=== PATIENT | female | born 1940 | race Caucasian/White ===

== ENCOUNTER → 2017-01-07 | Outpatient (CLI) | payer MEDICARE, OTHER | LOC: GMAB 10:31 | PROVIDERS: ATTEND Family Medicine | DX: I10 Essential (primary) hypertension (principal); E11.9 Type 2 diabetes mellitus without complications; Z79.4 Long term (current) use of insulin ==

== ENCOUNTER → 2017-05-01 | Outpatient (CLI) | payer MEDICARE, OTHER | END | disposition home or self-care (01) | LOC: GMAB 09:50 | PROVIDERS: ATTEND Family Medicine | DX: L40.50 Arthropathic psoriasis, unspecified (principal); R23.3 Spontaneous ecchymoses ==

== ENCOUNTER → 2017-05-21 | Outpatient (CLI) | payer MEDICARE, OTHER ==
--- NOTE | 2017-05-21 20:18 | MRI ---
EXAM DESCRIPTION: Brain w/oContrast CLINICAL HISTORY: TENSION-TYPE HEADACHE COMPARISON: None TECHNIQUE: Multiplanar multisequence imaging of the brain including the intravenous administration of contrast. FINDINGS: Mildly generous extra-axial CSF spaces anterior to each frontal lobe and to the left of the left frontal lobe could be due to mild parenchymal volume loss. No definite focal extra-axial fluid collection is seen. There is no evidence of layering blood products and extra-axial CSF spaces. Scattered foci of increased T2 signal intensity do not exert significant mass effect on surrounding structures and may be sequela of prior insult, most likely on the basis of small vessel disease. There is no definite evidence of acute mass, mass effect, midline shift or hemorrhage. No focal abnormal extra-axial fluid collection is seen. The ventricles, basal cisterns and extra-axial fluid spaces are otherwise normal in size and configuration. Brain parenchymal signal is otherwise normal. IMPRESSION: No acute abnormalities. Electronically signed by: Alec Bates 05/21/2017 8:17 PM [facility]
== END | disposition home or self-care (01) ==
LOC: MRI 13:02
PROVIDERS: ATTEND Family Medicine
DX: G44.209 Tension-type headache, unspecified, not intractable (principal)

== ENCOUNTER → 2017-11-13 | Outpatient (CLI) | payer MEDICARE, MEDICAID | LOC: GMAB 10:46 | PROVIDERS: ATTEND Family Medicine | DX: I10 Essential (primary) hypertension (principal) ==

== ENCOUNTER → 2018-01-22 | Outpatient (CLI) | payer MEDICARE, MEDICAID | LOC: GMAE 10:45 | PROVIDERS: ATTEND Family Medicine | DX: E11.40 Type 2 diabetes mellitus with diabetic neuropathy, unspecified (principal); I10 Essential (primary) hypertension ==

== ENCOUNTER 2018-10-06 10:50 | Emergency (ER) | payer MEDICARE, OTHER ==
[2018-10-06 11:20] VITALS: TEMP 98.5
[2018-10-06] MEDS ORDERED: SODIUM CHLORIDE 0.9% (FLUSH) 10 ML SYG IV PRN (11:23)
[2018-10-06] MEDS ORDERED: fentaNYL CITRATE INJ 50 MCG/ML AMP IV ONE (11:26)
--- NOTE | 2018-10-06 11:45 | ED.PDOC ---
History of Present Illness - General Chief Complaint: General Stated Complaint: pain from fall on Friday Time Seen by Provider: 10/06/18 11:23 Source: patient Exam Limitations: no limitations - History of Present Illness Initial Comments: PT PRESENT WITH COMPLAINT OF BACK PAIN AND NECK PAIN AFTER FALLING 3 DAYS AGO WHILE AT HOME. PT REPORTS THAT SHE LOST HER BALANCE AND FELL BACKWARDS HITTING HER BUTTOCKS, BACK AND HEAD. SHE DENIES LOC. SHE REPORTS ONLY MINOR SORENESS INITIALLY BUT STATES THAT PAIN WAS INTENSIFIED UPON AWAKENING THIS AM. PT TAKES PLAVIX FOR CAD. Severity: moderate Improving Factors: immobilization Worsening Factors: movement Associated Symptoms: denies symptoms Allergies/Adverse Reactions: Allergies Diphenhydramine [From Benadryl] Adverse Reaction (Verified 10/06/18 11:20) Penicillins Adverse Reaction (Verified 10/06/18 11:20) Home Medications: Ambulatory Orders Clopidogrel Bisulfate [Plavix] 10/06/18 Cyclobenzaprine HCl [Flexeril] 10 mg PO Q6HR PRN #20 tab 10/06/18 Furosemide Tab [Lasix Tab] 10/06/18 Insulin Glargine 100U/ml [Lantus] 10/06/18 Metoprolol Tartrate [Lopressor] 10/06/18 Sitagliptin Phosphate [Januvia] 10/06/18 Sulfasalazine 10/06/18 Tramadol HCl 10/06/18 Review of Systems - Review of Systems Constitutional: Denies: chills, fever EENTM: Denies: nose congestion, throat pain Respiratory: Denies: cough, short of breath Cardiology: Denies: chest pain, palpitations Gastrointestinal/Abdominal: Denies: nausea, vomiting Genitourinary: Denies: dysuria, frequency Musculoskeletal: States: see HPI, back pain, muscle pain, muscle stiffness, neck pain Skin: Denies: dryness, lesions Neurological: Denies: headache, numbness Endocrine: States: no symptoms reported Hematologic/Lymphatic: States: no symptoms reported Past Medical History (General) - Patient Medical History Hx Seizures: No Hx Asthma: No Hx of COPD: No Hx Cardiac Disorders: Yes Hx Congestive Heart Failure: No Hx Pacemaker: No Hx Hypertension: No Hx Diabetes: Yes Hx Gastroesophageal Reflux: Yes Hx Cancer: Yes - COLON Hx Hepatitis C: No Surgical History: cholecystectomy, tonsillectomy, Hysterectomy - Vaccination History Hx Tetanus, Diphtheria Vaccination: Yes Hx Influenza Vaccination: Yes Hx Pneumococcal Vaccination: Yes Immunizations Up to Date: Yes - Social History Hx Tobacco Use: No Hx Alcohol Use: No Hx Substance Use: No Hx Substance Use Treatment: No Hx Depression: No - Female History Patient is a Female of Child Bearing Age (10 -59 yrs old): No Family Medical History - Family History Mother Family History: Unknown Living Status: Physical Exam - Physical Exam General Appearance: Alert, Obese, Well Developed, Well Groomed, Well Hydrated, Other - APPEARS UNCOMFORTABLE Eye Exam: bilateral normal Ears, Nose, Throat: hearing grossly normal, normal ENT inspection Neck: supple, normal inspection, tender midline Respiratory: chest non-tender, lungs clear, normal breath sounds, no respiratory distress Back Exam: normal inspection, other - MUSCLE TENDERNESS ALONG BILATERAL TRAPEZIUS MUSCLES Extremity: non-tender, normal inspection Neurologic: alert, normal mood/affect, oriented x 3 Skin Exam: normal color, warm/dry, other - NO ECCHYMOSIS NOTED. Progress - Progress Progress: 10/06/18 13:09 PT HAS SOME RELIEF OF PAIN AFTER IV FENTANYL. LABS AND CT FINDINGS DISCUSSED WITH PATIENT AND FAMILY MEMBER AT BEDSIDE. PT ENCOURAGED TO FOLLOW UP WITH PRIMARY PHYSICIAN FOR FOLLOW UP. - Results/Orders Results/Orders: Laboratory Tests 10/06/18 10/06/18 10/06/18 11:38 11:38 11:38 WBC 4.6 L RBC 4.67 Hgb 13.1 Hct 40.9 MCV 87.5 MCH 28.1 MCHC 32.1 L RDW 16.3 H Plt Count 247 MPV 7.2 L Absolute Neuts (auto) 3.30 Absolute Lymphs (auto) 0.80 L Absolute Monos (auto) 0.50 Absolute Eos (auto) 0.10 Absolute Basos (auto) 0.00 Neutrophils % 71.1 Lymphocytes % 16.3 L Monocytes % 9.9 H Eosinophils % 1.9 Basophils % 0.8 PT 9.9 INR 0.99 PTT (SP) 22.7 Sodium 141 Potassium 3.6 Chloride 104 Carbon Dioxide 28 Anion Gap 12.6 BUN 16 Creatinine 0.57 L BUN/Creatinine Ratio 28.1 H Random Glucose 134 H Serum Osmolality 284.4 Calcium 9.0 Total Bilirubin 0.3 AST 25 ALT 19 Alkaline Phosphatase 52 Creatine Kinase CK-MM (CK-3) CK-BB (CK-1) CK and CKMB Interp Serum Total Protein 6.8 Albumin 3.9 Globulin 2.9 Albumin/Globulin Ratio 1.3 Urine Color Urine Appearance Urine pH Ur Specific Henderson Urine Protein Urine Glucose (UA) Urine Ketones Urine Blood Urine Nitrite Urine Bilirubin Urine Urobilinogen Ur Leukocyte Esterase Urine RBC Urine WBC Ur Epithelial Cells Amorphous Sediment Urine Bacteria Urine Mucus 10/06/18 10/06/18 10/06/18 11:38 11:43 12:40 WBC RBC Hgb Hct MCV MCH MCHC RDW Plt Count MPV Absolute Neuts (auto) Absolute Lymphs (auto) Absolute Monos (auto) Absolute Eos (auto) Absolute Basos (auto) Neutrophils % Lymphocytes % Monocytes % Eosinophils % Basophils % PT INR PTT (SP) Sodium Potassium Chloride Carbon Dioxide Anion Gap BUN Creatinine BUN/Creatinine Ratio Random Glucose Serum Osmolality Calcium Total Bilirubin AST ALT Alkaline Phosphatase Creatine Kinase 59 CK-MM (CK-3) Cancelled CK-BB (CK-1) Cancelled CK and CKMB Interp Cancelled Serum Total Protein Albumin Globulin Albumin/Globulin Ratio Urine Color Therese H Urine Appearance Clear Urine pH 6.5 Ur Specific Henderson 1.025 Urine Protein 100 H Urine Glucose (UA) Negative Urine Ketones Trace Urine Blood Negative Urine Nitrite Negative Urine Bilirubin Moderate Urine Urobilinogen 1.0 Ur Leukocyte Esterase Negative Urine RBC 0-1 Urine WBC 3-5 H Ur Epithelial Cells 5-10 Amorphous Sediment Trace Urine Bacteria Rare Urine Mucus Moderate - EKG/XRAY/CT CT: HEAD/C-SPINE: NO ACUTE ABNORMALITIES CT Ordered: Yes CT Interpretation Call Back: No Departure - Departure Clinical Impression: Myalgia, Closed head injury, Cervical strain Time of Disposition: 13:10 Disposition: Discharge to Home or Self Care Condition: Good Departure Forms: ED Discharge - Pt. Copy, Patient Portal Self Enrollment Diet: resume usual diet Referrals: ELEANOR MCKEON MD [Primary Care Provider] - 1-5 Days Prescriptions: Cyclobenzaprine HCl [Flexeril] 10 mg PO Q6HR PRN #20 tab PRN Reason: Muscle Spasms Home Medications: Ambulatory Orders Clopidogrel Bisulfate [Plavix] 10/06/18 Cyclobenzaprine HCl [Flexeril] 10 mg PO Q6HR PRN #20 tab 10/06/18 Furosemide Tab [Lasix Tab] 10/06/18 Insulin Glargine 100U/ml [Lantus] 10/06/18 Metoprolol Tartrate [Lopressor] 10/06/18 Sitagliptin Phosphate [Januvia] 10/06/18 Sulfasalazine 10/06/18 Tramadol HCl 10/06/18
[2018-10-06 11:51] VITALS: O2SAT 95
--- NOTE | 2018-10-06 12:42 | CT ---
EXAM DESCRIPTION: Head CLINICAL HISTORY: head injury remote COMPARISON: Previous CT head April 12, 2015 TECHNIQUE: Noncontrast head CT was performed with routine protocol. FINDINGS: Normal qiu-white matter differentiation. Ventricles and sulci are prominent consistent with age-related cerebral volume loss. Prominent extra-axial CSF spaces including frontal right parafalcine fluid measuring 1.1 cm on present study compared to 1 cm on previous exam. Collections overlying the frontal lobes bilaterally measure 1 cm on the right and 1.4 cm on the left compared to approximately 1 cm on the right and 1.3 cm on the left previously. Prominent subarachnoid spaces favored over chronic subdural hygromas/hematomas. No acute-appearing high density hemorrhage, focal edema or shift of the midline. No sulcal effacement. Normal orbital contents. Basilar cisterns appear clear. Intact calvarium with no fracture or lytic lesion. Normal aeration of tympanic cavities and mastoid air cells. No fluid levels in the paranasal sinuses. Skull base appears intact. Symmetrical internal auditory canals. Coronal and sagittal reformatted images confirm the findings. Partially empty sella. Mild thinning of the corpus callosum. IMPRESSION: No acute intracranial pathologic process. This exam was performed according to our departmental dose-optimization program, which includes automated exposure control, adjustment of the mA and/or kV according to patient size and/or use of iterative reconstruction technique. Total DLP equals 752.48 mGycm. Electronically signed by: Modesto Nuno MD 10/06/2018 12:39 PM CDT
--- NOTE | 2018-10-06 12:49 | CT ---
EXAM DESCRIPTION: Cervical Spine CLINICAL HISTORY: head injury remote COMPARISON: Previous CTA of the neck February 15, 2013 TECHNIQUE: Cervical CT is performed with thin-section axial imaging. MPRs are created and reviewed as well. FINDINGS: Axial bone window images reveal intact ring of C1. No abnormal widening of the atlantodens interval. No fracture of the vertebral bodies or transverse processes or posterior elements. Lung apices appear clear. No cervical mass or adenopathy. Sagittal reformatted images show normal alignment of vertebral bodies and facets. No jumped facet or facet fracture. Normal craniocervical alignment. No prevertebral soft tissue swelling. No avulsion of the spinous processes. Spondylosis: Previous anterior interbody fusion at C4 - C5 with anterior plate and screws in place. This was present on the previous study. Severe disc degeneration with near complete loss of disc height at the C3-4 level with lesser loss of disc height at C5-6, C6-7 and C7-T1. Moderately severe facet degenerative changes are seen above and below the levels of the fusion construct. Marked degenerative changes around the dens. Coronal reformatted images show normal atlantooccipital and atlantoaxial alignment. The base of the dens is intact as is the body of C2. Intact lateral masses. IMPRESSION: Negative for fracture or posttraumatic subluxation. This exam was performed according to our departmental dose-optimization program, which includes automated exposure control, adjustment of the mA and/or kV according to patient size and/or use of iterative reconstruction technique. Total DLP equals 319.77 mGycm. Electronically signed by: Modesto Nuno MD 10/06/2018 12:46 PM CDT
[2018-10-06] MEDS ORDERED: KETOROLAC TROMETHAMINE INJ 30 MG/ML VIAL IV ONE (13:04)
[2018-10-06 13:27] VITALS: BP 182/80
== END 2018-10-06 13:45 | disposition home or self-care (01) ==
LOC: ER 10:50
DX: S09.90XA Unspecified injury of head, initial encounter (principal); S16.1XXA Strain of muscle, fascia and tendon at neck level, initial encounter; M79.10 Myalgia, unspecified site; I25.10 Atherosclerotic heart disease of native coronary artery without angina pectoris; E11.9 Type 2 diabetes mellitus without complications; K21.9 Gastro-esophageal reflux disease without esophagitis; Z85.038 Personal history of other malignant neoplasm of large intestine; Z79.4 Long term (current) use of insulin; Z79.899 Other long term (current) drug therapy; Z79.02 Long term (current) use of antithrombotics/antiplatelets; Z88.8 Allergy status to other drugs, medicaments and biological substances; Z88.0 Allergy status to penicillin; W18.30XA Fall on same level, unspecified, initial encounter; Y92.009 Unspecified place in unspecified non-institutional (private) residence as the place of occurrence of the external cause
CPT/HCPCS: 36415; 70450; 72125; 80053; 81001; 82550; 85025; 85610; 85730; J1885; J3010

== ENCOUNTER → 2020-03-01 | Outpatient (CLI) | payer MEDICARE, OTHER | LOC: GMAE 10:15 | PROVIDERS: ATTEND Family Medicine | DX: R94.6 Abnormal results of thyroid function studies (principal); I10 Essential (primary) hypertension; E11.40 Type 2 diabetes mellitus with diabetic neuropathy, unspecified; E78.2 Mixed hyperlipidemia ==

== ENCOUNTER → 2020-06-19 | Outpatient (CLI) | payer MEDICARE, OTHER | LOC: GMAE 11:34 | PROVIDERS: ATTEND Family Medicine | DX: R45.84 Anhedonia (principal); R10.30 Lower abdominal pain, unspecified; E83.51 Hypocalcemia ==

== ENCOUNTER → 2020-06-20 | Outpatient (CLI) | payer MEDICARE, OTHER ==
--- NOTE | 2020-06-20 17:23 | CT ---
EXAM DESCRIPTION: CT ABDOMEN AND PELVIS WITH CONTRAST CLINICAL HISTORY: LOWER ABD PAIN COMPARISON: MRI abdomen January 30, 2016, CT abdomen and pelvis May 26, 2014 TECHNIQUE: CT of the abdomen and pelvis are performed during IV bolus administration of routine adult dose of nonionic iodinated IV contrast. No oral contrast. FINDINGS: In the lower chest, the lung bases are clear. Heart size is normal. Extensive coronary arterial calcification. CT abdomen Gallbladder is surgically absent. Small cyst of the posterior mid right kidney measures 1 cm. 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 Small adenomas versus mild nodular hyperplasia of the adrenal glands. Renal and adrenal findings are unchanged compared to the previous study. The liver, spleen, pancreas, adrenal glands, stomach and kidneys are unremarkable in appearance. No inflammation around the pancreas. No renal stones or hydronephrosis. No bowel dilatation to suggest obstruction. Mild postoperative ventral hernia containing fat as on previous studies. Soft tissue thickening anterior to the rectus abdominis muscles consistent with previous surgery. Surgical changes in the small bowel. No free air or free fluid. CT pelvis Appendix is surgically absent. No inflammation around the cecum or terminal ileum or sigmoid colon. Bladder and distal ureters are negative for stones. Normal enhancement of pelvic vessels. No inguinal or lower pelvic adenopathy. Uterus is surgically absent. No ovarian enlargement. Bone window images are negative for fracture or lytic lesion. Coronal and sagittal reformatted images confirm the findings. Liver length of 18.3 cm is at the upper limit of normal bilateral renal cortical scarring/thinning. Calcified lesion in the small bowel slightly larger than on previous study, benign in appearance likely related to postoperative stricture. IMPRESSION: No acute upper abdominal process. No acute process in the pelvis. This exam was performed according to our departmental dose-optimization program, which includes automated exposure control, adjustment of the mA and/or kV according to patient size and/or use of iterative reconstruction technique. Total DLP equals 1446.70 mGycm. Electronically signed by: Modesto Nuno MD 06/20/2020 5:21 PM [employer]
== END ==
LOC: CT 08:32
PROVIDERS: ATTEND Family Medicine
DX: R10.30 Lower abdominal pain, unspecified (principal)